=== PATIENT | male | born 1980 | race Caucasian/White ===

== ENCOUNTER → 2016-09-05 | Outpatient (CLI) | payer OTHER | LOC: FIMAGING 19:51 | PROVIDERS: ATTEND Family Medicine Sports Medicine | DX: M25.512 Pain in left shoulder (principal); M65.812 Other synovitis and tenosynovitis, left shoulder ==

== ENCOUNTER → 2017-01-16 | Outpatient (CLI) | payer OTHER | LOC: FIMAGING 13:15 | PROVIDERS: ATTEND Family Medicine Sports Medicine | DX: S89.92XA Unspecified injury of left lower leg, initial encounter (principal) ==